=== PATIENT | male | born 2000 | race Caucasian/White ===

== ENCOUNTER 2023-04-20 20:29 | Emergency (ER) | payer OTHER, SELFPAY ==
--- NOTE | ~2023-04-20 | XR_ITS ---
EXAMINATION: XR SOFT TISSUE NECK CLINICAL INDICATION: painful swallowing COMPARISON: None available. TECHNIQUE: 2 views of the soft tissue neck were obtained. FINDINGS: Soft tissue films of the neck demonstrate a normal larynx, pharynx and upper trachea. No soft tissue swelling or opaque foreign body is demonstrated. XR/XR soft tissue neck IMPRESSION: Unremarkable radiographs of the soft tissues of the neck.
--- NOTE | ~2023-04-20 | XR_ITS ---
EXAMINATION: XR CHEST, 2 VIEWS CLINICAL INFORMATION: Fever/cough COMPARISON: 08/07/2018 TECHNIQUE: PA and lateral views of the chest were obtained. FINDINGS: Lungs are clear. No consolidation, pneumothorax, or pleural effusion. Cardiac and mediastinal contours are normal. Pulmonary vasculature is unremarkable. Trachea is midline. Osseous structures are unremarkable. XR/XR chest 2V IMPRESSION: No acute cardiopulmonary findings.
--- NOTE | 2023-04-20 20:41 | ED.URI ---
HPI - URI/Sore Throat General Chief Complaint: Upper Respiratory Symptoms Stated Complaint: mom has covid... he is having covid symptoms... Time Seen by Provider: 04/20/23 23:07 History of Present Illness HPI Narrative: The patient is an ordinarily healthy 22-year-old male who is on no medications. He says he smokes between 5 and 10 cigarettes per day. He works 2 jobs. He lives with his mother. He says that his mother had COVID about a week or 2 ago. He has felt unwell over the last 48 hours with a sore throat, cough, and chills. He feels quite unwell. He has also had a headache and a runny nose. He thought that perhaps he might also have COVID and came to the emergency room for evaluation. No abdominal pain, nausea, vomiting. Related Data Allergies Allergy/AdvReac Type Severity Reaction Status Date / Time No Known Allergies Allergy Verified 04/20/23 20:46 Review of Systems Review of Systems: Yes all other systems are reviewed and are negative [facility] Social History Social History Smoked in Last 30 Days: No Use of substances other than those prescribed or required for medical reasons: No Advance Directives: No Advance Directives Information Provided: No Physical Exam Vital Signs: Vital Signs: Last Vital Signs Temp 98.3 F 04/20/23 20:42 Pulse 72 04/20/23 23:19 Resp 163 H 04/20/23 23:19 BP 117/49 L 04/20/23 23:19 Pulse Ox 98 04/20/23 20:42 O2 Del Method Room Air 04/20/23 20:42 BMI result Body Mass Index 27.0 Const: Other: The patient was asleep. He awoke easily. He did not appear in distress. He looks as though he is ordinarily healthy 22-year-old. HEENT: Other: The appearance of the face is unremarkable. Mucous membranes are moist. The posterior pharynx shows no swelling or significant injection. Eyes: Other: Pupils are round and equal, conjunctivae are clear, extraocular movements intact. Neck: Other: Neck is supple and benign. No cervical adenopathy. Resp: Other: Lungs are clear bilaterally. Cardio: Other: The patient has a regular rate and rhythm no murmur. GI: Other: The abdomen is soft and nontender. Skin: Other: The skin is dry and unremarkable. No rash. Neuro: Other: The patient is awake, alert, oriented, appropriate. Speech is clear. Face is symmetrical. Moves normally. Seems grossly neurologically intact. Extrem: Other: No peripheral edema. Course Course Course Narrative: RMChristine: 22 year-old M w/ no sig PMHx presenting to the ED c/o congestion, chills, sore throat, productive cough, GARCIA x yesterday. Mother positive for COVID (more than 5 days ago) afebrile, nontoxic appearing. Viral testing ordered Full HPI, ROS and PE to be performed by primary ED provider. Medications Administered Discontinued Medications Generic Name Dose Route Start Last Admin Trade Name Freq PRN Reason Stop Dose Admin Ibuprofen 600 mg 04/20/23 23:25 04/21/23 00:08 Ibuprofen 600 Mg Tablet PO 04/20/23 23:26 600 mg ONCE ONE Administration Medical Decision Making Medical Decision Making [facility] Narrative: The patient is a 22-year-old male who has been unwell for about 48 hours with cough and congestion and chills and headache and runny nose. He thought he might have COVID because his mother had COVID 1-2 weeks ago. Here his viral testing was negative for COVID and influenza. He was also swabbed for strep throat and this was also negative. Chest x-ray shows no infiltrate. He continued to complain of a severe sore throat and so we also obtained a soft tissue neck x-ray that showed no suggestion of epiglottitis or other similar possible airway problem. He was told that he seems to have a viral illness. He is given a work note. He should use ibuprofen and acetaminophen. Lab Data Labs: Lab Results 04/20/23 Range/Units 20:56 COVID-19 (JUAN F) Negative (Negative) COVID-19 Clin Com See Note Influenza Type A (ELVIA) Negative (Negative) Influenza Type B (ELVIA) Negative (Negative) Influenza A & B Note N S. pyogenes GrpA ELVIA Negative (Negative) Discharge Plan Discharge Clinical Impression: Upper respiratory infection, Acute sore throat Patient Disposition: Home, Self-Care Instructions: Upper Respiratory Infection (ED) Additional Instructions: You have tested negative for COVID, the flu, and for strep throat. Additionally your chest x-ray shows no pneumonia and an x-ray of your neck shows no concerning signs of infection in your neck. I think you have a viral illness which we have been unable to test for. Please plan on resting and taking it easy for the next several days. You may use ibuprofen and acetaminophen (Tylenol) as needed for discomfort or fevers. You have been given a work note through TuesdayApril 25. Please follow-up with your primary care doctor as needed. If you are significantly worse please return to the emergency department. Stand Alone Forms: Work/School Release Interventions: ED Discharge Assessment Last Done: 04/21/23 00:42 Discharge Date/Time: 04/21/23 00:44
[2023-04-20 20:42] VITALS: BP 141/81; PULSE 72; RESP 18; TEMP 36.8; O2SAT 98; BMI 27.0
[2023-04-20 21:09] LABS: IDNOW Serial# 08D9AD1C; Strep A Nucleic Acid Negative (Negative)
[2023-04-20 21:17] LABS: IDNOW Serial# 152EDE1D; Influenza A Negative (Negative); Influenza A & B2 Note N; Influenza B2 Negative (Negative)
[2023-04-20 21:19] LABS: COVID-19 Test Negative (Negative); IDNOW Serial# 9DB6401D
[2023-04-20 23:19] VITALS: BP 117/49; PULSE 72; RESP 163
--- NOTE | 2023-04-20 23:25 | PC.NURSE ---
Dr. Anand @ bedside. PT in no apparent distress. Chest x-ray ordered.
[2023-04-21] MEDS: Ibuprofen 600 MG TABLET PO (00:08)
== END 2023-04-21 00:44 | disposition home or self-care (01) ==
PROVIDERS: Physician Assistant; Emergency Provider Emergency Medicine
DX: J06.9 Acute upper respiratory infection, unspecified (principal); J02.9 Acute pharyngitis, unspecified; Z11.52 Encounter for screening for COVID-19; F17.210 Nicotine dependence, cigarettes, uncomplicated
CPT/HCPCS: 70360; 71046; 87502; 87635; 87651; 99283; 99284